=== PATIENT | male | born 1990 | race Two or more races ===

== ENCOUNTER 2021-05-03 14:41 | Emergency (ER) | payer SELFPAY ==
[~2021-05-03] VITALS: Ht 177.8 cm; Wt 62.0 kg
--- NOTE | 2021-05-03 15:41 | NUR ---
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
--- NOTE | 2021-05-03 15:52 | NUR ---
PT AMBULATORY TO ROOM 9 W/ C/O LLQ ABD PAIN AND L TESTICULAR PAIN AND SWELLING. PT STATES IT STARTED 2 DAYS AGO. PT STATES HE NOTED HEMATURIA X1 DAY. PT STATES HE DOESN'T KNOW IF IT COULD BE AN STD. PT RESTING ON GURNEY. NADN. MONITORS APPLIED. VSS. WARM BLANKET PROVIDED. CALL LIGHT IN REACH.
[2021-05-03 15:53] LABS: MICROSCOPIC INDICATED
[2021-05-03 15:59] LABS: BASOPHILS % (AUTO) 0 % (0-1); EOSINOPHILS % (AUTO) 3 % (1-7); LYMPHOCYTES % (AUTO) 19 % (22-44); MEAN CORPUSCULAR HEMOGLOBIN 30.3 pg (27.5-34.5); MEAN CORPUSCULAR HGB CONC 33.9 g/dL (33.2-36.2); MONOCYTES % (AUTO) 8 % (2-9); NEUTROPHILS % (AUTO) 70 % (42-75); PLATELET COUNT 332 x10^3/uL (130-400); RED BLOOD COUNT 5.16 x10^6/uL (4.38-5.82); RED CELL DISTRIBUTION WIDTH 14.1 % (9.4-14.8)
[2021-05-03 16:07] LABS: ALBUMIN 3.6 g/dL (3.4-5.0); CALCIUM 8.8 mg/dL (8.5-10.1); CHLORIDE 105 mmol/L (98-107); CREATININE 0.71 mg/dL (0.7-1.3)
--- NOTE | 2021-05-03 16:08 | NUR ---
PT RESTING ON GURNEY. NADN. DUNHAM.
[2021-05-03 16:17] LABS: ANION GAP 3 mmol/L (5-15)
--- NOTE | 2021-05-03 16:31 | NUR ---
PT CHART REVIEWED AND PLACED FOR RECHECK.
--- NOTE | 2021-05-03 16:43 | NUR ---
ERP DR. ALBA AT BEDSIDE FOR EVAL.
[2021-05-03] MEDS ORDERED: MORPHINE SULFATE 4 MG/ML, 1ML IVPush PRN (17:00)
--- NOTE | 2021-05-03 17:07 | NUR ---
PT RESTING ON GURNEY. NADN. DUNHAM.
--- NOTE | 2021-05-03 17:24 | NUR ---
PT REFUSING PIV AND IV MEDICATIONS AT THIS TIME.
[2021-05-03] MEDS ORDERED: CEFTRIAXONE 1,000 MG in DEXTROSE 5% 50 ML IVPB ONE (18:00)
[2021-05-03] MEDS ORDERED: DOXYCYCLINE 100 MG in DEXTROSE 5% 250 ML IV ONE (18:30)
--- NOTE | 2021-05-03 19:03 | NUR ---
PT RESTING ON GURNEY. NADN. DUNHAM.
[2021-05-03 20:07] VITALS: BP 125/75
== END 2021-05-03 20:12 | disposition home or self-care (01) ==
LOC: ED 16:00
DX: N45.1 Epididymitis (principal); N45.2 Orchitis
CPT/HCPCS: 36415; 76870; 80048; 81001; 82040; 85025; 87086; 87491; 87591; 96365; 96367; 99285; J0696; J7060